=== PATIENT | male | born 1995 | race Caucasian/White ===

== ENCOUNTER 2018-11-09 11:55 | Observation (INO) ==
[2018-11-09] MEDS ORDERED: MoRPHine SULFATE 4 MG/ML 1 ML CARP\\VIAL IV STA (13:04)
[2018-11-09] MEDS ORDERED: ONDANSETRON INJ 2 MG/ML 2 ML VIAL IV STA (13:04)
[2018-11-09 13:26] LABS: Basophils # (auto) 0.02 K/uL (0-0.2); Basophils % (auto) 0.2 %; Eosinophils # (auto) 0.01 K/uL (0-0.5); Eosinophils % (auto) 0.1 %; Hematocrit (blood only) 41.6 % (42-52); Hemoglobin 14.4 g/dL (14.0-18.0); Immature Granulocytes # (auto) 0.02 K/uL (0.00-0.02); Immature Granulocytes % (auto) 0.2 %; Lymphocytes # (auto) 1.32 K/uL (1.2-3.4); Lymphocytes % (auto) 12.7 %; Mean Corpuscular Hgb Conc 34.6 g/dL (32-36); Mean Corpuscular Volume 85.8 fL (80-100); Mean Platelet Volume 9.6 fL (7.4-10.4); Monocytes # (auto) 0.78 K/uL (0.11-0.59); Monocytes % (auto) 7.5 %; Neutrophils # (auto) 8.28 K/uL (1.4-6.5); Neutrophils % (auto) 79.3 %; Platelet Count 243 K/uL (130-400); RDW Coefficient of Variation 12.7 % (11.5-14.5); RDW Standard Deviation 39.9 fL (36.4-46.3); Red Blood Count 4.85 M/uL (4.7-6.1); White Blood Count 10.43 K/uL (4.8-10.8)
[2018-11-09 13:43] LABS: BUN Creatinine Ratio 12.9 (10-20); Calcium 9.3 mg/dl (8.5-10.1); Creatinine Clr Calc Pharmacy 130.8 ml/min; Est GFR (African American) 127.9; Est GFR (Non-African American) 110.4
[2018-11-09] MEDS ORDERED: IOVERSOL 100ml IV PRN (13:54)
--- NOTE | 2018-11-09 14:09 | CT Scan Report ---
CT pelvis w/IV con only HISTORY: 23 years-old Male eval for rectal abscess acute rectal pain with possible perirectal absces s COMPARISON: None available TECHNIQUE: Multiple axial CT images of the pelvis were obtained following the intravenous ministratio n of a 94 mL Optiray 320 IV contrast. A dose lowering technique [facility] FINDINGS: There is a multiloculated peripherally enhancing thick-walled fluid collection about the left periana l tissues extending from the 12-6 o'clock positions measuring 2.8 x 2.1 x 3.1 cm in AP, transverse an d craniocaudal dimensions. This appears to be intersphincteric in location. No definite extension int o the ischiorectal space. Additionally, there is no superior extension above the levator ani musculat ure into the pelvis. No perianal fistula identified. Mild adjacent inflammatory stranding. Mild to moderate formed stool about the distal colon. Fluid-filled terminal ileum. The appendix is no t definitively seen. No ascites or mesenteric inflammation about the pelvis. Urinary bladder is unrem arkable. Iliac vasculature is within normal limits. No adenopathy. Bones appear to be intact. No susp icious bone lesions. IMPRESSION: 1. 3.1 cm left perianal abscess is multiloculated and involves the 12-6:00 region of the perianal tis sues, intersphincteric in location. No extension above the levator ani musculature into the pelvis. N o associated perianal fistula. 2. No acute intrapelvic abnormality identified. The above report was generated using voice recognition software. It may contain grammatical, syntax o r spelling errors. Electronically signed by: Jose Guadalupe Tinajero M.D. 11/09/2018 2:08 PM
[2018-11-09] MEDS ORDERED: MoRPHine SULFATE 2 MG/ML CARP IV STA (14:22)
[2018-11-09] MEDS ORDERED: PIPERACILL/TAZOBAC CONSULT ACTIVE PRN ×2 (15:02→16:22)
--- NOTE | 2018-11-09 15:02 | History & Physical Report ---
Date of Service November 09, 2018 Assessment & Plan (1) Perianal abscess: Seen with Dr. Aviles in the ED. Patient has significant pain and tenderness, will take to the OR for I&D under MAC. He had small glass of water early this morning. Preop Zosyn. Dr Aviles- saw pt in ER, agree with above note for incision/ drainage today in OR History of Present Illness Primary Care Provider: NO PCP 23 y/o male with 1 week history of rectal pain increasing over the past two days and developing into a lump. No fevers or chills, no prior history of abscess or hemorrhoids. Started taking doxycycline today that was called in from home, he is a [employer] student. Allergies Allergy/AdvReac Type Severity Reaction Status Date / Time No Known Allergies Allergy Unverified 11/09/18 12:48 Home Medications Home Medications Medication Instructions Recorded Confirmed Type fluvoxamine 100 mg tablet 100 mg PO BID #180 tab 10/23/18 11/09/18 Rx Past Med/Surg History Medical History Depression Surgical History Status post medial meniscus repair Left knee. Pt thinks it was medial but is unsure. 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 Feels Safe at Home: Yes Smoking Status: Never smoker Second Hand Exposure: No Hx Alcohol Use: Yes Alcohol type: beer and hard liquor Alcohol Intake Frequency : Weekly Alcohol Intake Frequency Comment: once per week Hx Substance Use: No Dental Care, Regularly: Yes Physical Activity Frequency: 3-4 Times per Week Review of Systems Constitutional: no fever and no chills Physical Exam Constitutional: WD/WN, vitals as above well developed and well nourished Respiratory: normal respiratory effort, lungs clear to auscultation Cardiovascular: RRR, no murmur, no edema Gastrointestinal (Abdomen): normal bowel sounds, soft, nontender, no hepatosplenomegaly Rectal Exam: + rectal mass (left perirectal abscess, tender) Results & Data Vital Signs (Past 12 Hours) Vital Signs Temp Pulse Pulse Resp BP BP Pulse Ox 11/09/18 13:57 89 18 140/87 99 11/09/18 11:58 36.3 C L 96 H 20 148/[address] H [address] pelvis w/IV con only HISTORY: 23 years-old Male eval for rectal abscess acute rectal pain with possible perirectal abscess COMPARISON: None available TECHNIQUE: Multiple axial CT images of the pelvis were obtained following the intravenous ministration of a 94 mL Optiray 320 IV contrast. A dose lowering technique was used consistent with the principals of [place]. FINDINGS: There is a multiloculated peripherally enhancing thick-walled fluid collection about the left perianal tissues extending from the 12-6 o'clock positions measuring 2.8 x 2.1 x 3.1 cm in AP, transverse and craniocaudal dimensions. This appears to be intersphincteric in location. No definite extension into the ischiorectal space. Additionally, there is no superior extension above the levator ani musculature into the pelvis. No perianal fistula identified. Mild adjacent inflammatory stranding. Mild to moderate formed stool about the distal colon. Fluid-filled terminal ileum. The appendix is not definitively seen. No ascites or mesenteric inflammation about the pelvis. Urinary bladder is unremarkable. Iliac vasculature is within normal limits. No adenopathy. Bones appear to be intact. No suspicious bone lesions. IMPRESSION: 1. 3.1 cm left perianal abscess is multiloculated and involves the 12-6:00 region of the perianal tissues, intersphincteric in location. No extension above the levator ani musculature into the pelvis. No associated perianal fistula. 2. No acute intrapelvic abnormality identified. The above report was generated using voice recognition software. It may contain grammatical, syntax or spelling errors. Electronically signed by: Jose Guadalupe Tinajero M.D. 11/09/2018 2:08 PM
[2018-11-09] MEDS ORDERED: LACTATED RINGER'S 1,000 ML IV SCH (15:15)
[2018-11-09] MEDS ORDERED: DEXAMETHASONE SOD INJ 4 MG/ML VIAL ONE (15:23)
[2018-11-09] MEDS ORDERED: ONDANSETRON INJ 2 MG/ML 2 ML VIAL ONE (15:23)
[2018-11-09] MEDS ORDERED: LIDOCAINE HCL 2% 2 ML VIAL/AMP(20MG/ML) INFIL ONE (15:23)
[2018-11-09] MEDS ORDERED: PROPOFOL IV EMULSION 10 MG/ML 20 ML VIAL IV ONE (15:23)
[2018-11-09] MEDS ORDERED: fentaNYL citrate 100 MCG/2 ML VIAL ONE ×2 (15:23→16:08)
[2018-11-09] MEDS ORDERED: MIDAZOLAM HCL 1 MG/ML 2ML VIAL ONE (15:23)
[2018-11-09] MEDS ORDERED: PIPERACILLIN/TAZOBACTAM 3.375 GM/115 ML BAG IV ONE (15:30)
[2018-11-09] MEDS ORDERED: ONDANSETRON INJ 2 MG/ML 2 ML VIAL IV PRN ×2 (15:35→16:22)
[2018-11-09] MEDS ORDERED: HYDROmorphone INJ 1 MG/ML SYRINGE IV PRN (15:35)
[2018-11-09] MEDS ORDERED: ePHEDrine sulfate 50 MG/ML AMP IV PRN (15:35)
[2018-11-09] MEDS ORDERED: ATROPINE SULFATE 0.1 MG/ML 10ML SYR IV PRN (15:35)
[2018-11-09] MEDS ORDERED: fentaNYL citrate 100 MCG/2 ML VIAL IV PRN (15:35)
--- NOTE | 2018-11-09 15:38 | Anesthesiology Consultation ---
Date of Service November 09, 2018 Assessment & Plan (1) Encounter for pre-operative examination: Chart Review Chart Review: Acceptable Risk for Surgery and Patient NOT seen in Pre Admission Testing Consults Requested none History Surgery Operation Date: 11/09/18 09:40 Proposed Procedures p Incision and Drainage Perirectal Abscess - Felipe Aviles MD, FACS Height/Weight Height: 6 ft Weight: 77.4 kg Allergies Allergy/AdvReac Type Severity Reaction Status Date / Time No Known Allergies Allergy Unverified 11/09/18 12:48 Medications Home Medications Medication Instructions Recorded Confirmed Last Taken fluvoxamine 100 mg tablet 100 mg PO BID #180 tab 10/23/18 11/09/18 Unknown Active Medications Generic Name Dose Route Start Last Admin Trade Name Freq PRN Reason Stop Dose Admin Ioversol 94 ml 11/09/18 13:54 11/09/18 13:55 Optiray 320 100ml IV 11/13/18 13:53 94 ml ONCE PRN Administration Interaction Checking NPO Date Last Intake of Fluids: 11/09/18 Time Last Intake of Fluids: 10:00 Last Intake of Fluids Comment: SMALL GLASS OF WATER Date Last Intake of Solids: 11/08/18 Time Last Intake of Solids: 20:00 Past Medical History Medical History Depression Exercise / Class Metabolic Activity II 4-5 Yardwork/Stairs/Walk up hill Past Family History Family History Grandfather (Paternal) Prostate cancer Past Surgical History Surgical History Status post medial meniscus repair Left knee. Pt thinks it was medial but is unsure. [place] teeth extracted Past Anesthesia History No Hx of Anesthesia Complications and No Family Hx of Anesthesia Complications History of PONV No Hx of PONV and No Hx of Motion Sickness Social History Smoking Status: Never smoker Hx Alcohol Use: Yes Alcohol type: beer and hard liquor Hx Substance Use: No Physical Exam Vital Signs Last Vital Signs Temp 36.3 C L 11/09/18 11:58 Pulse 78 11/09/18 15:23 Resp 18 11/09/18 15:23 BP 138/85 07/05/19 15:23 Pulse Ox 99 11/09/18 15:23 Testing Laboratory Results 11/09/18 13:20 11/09/18 13:20
[2018-11-09] MEDS ORDERED: BUPIVACAINE 0.5 % 5 MG/1 ML MPF 30ML VIAL ONE (15:54)
--- NOTE | 2018-11-09 16:16 | Operative Report ---
Post Operative Report Pre & Post Diagnosis Operation Date: 11/09/18 09:40 <No data on this case meets the specified criteria> perirectal abscess Procedure Operation Date: 11/09/18 09:40 <No data on this case meets the specified criteria> incision/ drainage/ culture- perirectal abscess Surgeon Felipe Aviles MD, FACS Inspector Barrel nurses Estimated Blood Loss 5 Findings Consistent with Post-Op Diagnosis Specimens culture Description of Procedure see dictation I attest to the content of the Intraoperative Record and any orders documented therein. Any exceptions are noted below.
[2018-11-09] MEDS ORDERED: ACETAMINOPHEN 1,000 MG/100 ML VIAL IV STA (16:21)
[2018-11-09] MEDS ORDERED: ACETAMINOPHEN 325 MG TAB PO PRN (16:22)
[2018-11-09] MEDS ORDERED: IBUPROFEN 600 MG TAB PO PRN (16:22)
[2018-11-09] MEDS ORDERED: MoRPHine SULFATE 2 MG/ML CARP IV PRN (16:22)
[2018-11-09] MEDS ORDERED: PROMETHAZINE HCL 25 MG in SODIUM CHLORIDE 0.9% 50 ML IV PRN (16:22)
[2018-11-09] MEDS ORDERED: HYDROCODONE/ACETAMOPHEN 5/325MG TAB PO PRN ×2 (16:22)
[2018-11-09] MEDS ORDERED: PROMETHAZINE HCL 12.5 MG in SODIUM CHLORIDE 0.9% 50 ML IV PRN (16:22)
[2018-11-09] MEDS ORDERED: SODIUM CHLORIDE 0.9% 1000ML 1,000 ML IV SCH ×2 (16:30→17:45)
--- NOTE | 2018-11-09 17:10 | Anesthesiology Progress Note ---
Date of Service November 09, 2018 Anesthesia Post Procedure Vital Signs Vital Signs: Temp Pulse Pulse Pulse Resp BP BP 11/09/18 17:00 37 C 71 16 129/65 11/09/18 16:50 87 17 151/80 H 11/09/18 16:40 82 18 136/74 11/09/18 16:30 76 16 117/48 L 11/09/18 16:22 36.3 C L 75 20 101/49 L 11/09/18 15:37 36.4 C L 84 18 132/71 11/09/18 15:23 78 18 138/85 11/09/18 13:57 89 18 140/87 11/09/18 11:58 36.3 C L 96 H 20 148/88 H Pulse Ox 11/09/18 17:00 100 11/09/18 16:50 100 11/09/18 16:40 100 11/09/18 16:30 99 11/09/18 16:22 99 11/09/18 15:37 99 11/09/18 15:23 99 11/09/18 13:57 99 11/09/18 11:58 98 Pain Intensity Rectal: Pain Intensity: 7 Transfer of Care Handoff Completed per policy Notes Mental Status: alert / awake / arousable and participated in evaluation Patient Amnestic to Procedure: Yes Nausea / Vomiting: adequately controlled Pain: adequately controlled Airway Patency, RR, SpO2: stable & adequate BP & HR: stable & adequate Hydration State: stable & adequate Anesthetic Complications: no major complications apparent and Pt Satisfied with anesthetic care
--- NOTE | 2018-11-09 20:46 | Emergency Department Note ---
Entered by Marli Rodarte acting as a scribe for Garrett Paulino MD History of Present Illness General Chief complaint: Rectal Pain Stated complaint: RECTAL PAIN Source: patient Mode of arrival: ambulatory Limitations: no limitations History of Present Illness Onset (ago): week(s) 1 Location: pelvis (rectum) Radiation: non-radiation Pain Consistency: + constant Maximum Pain Intensity: 8 Current Pain Intensity: 8 Relieved By: + none Exacerbated By: + other (having a bowel movement) Associated symptoms: + other (-abdominal pain, -urinary symptoms, -rectal bleeding) Treatments prior to arrival: none The patient is a 23 year old male who presents to the ED with complaints of rectal pain for the past 1 week. He rates his pain as an 8/10 in severity. He states the area hurts "all the time" and especially with bowel movements. He believes there is a lump in the area. He denies any recent fevers or vomiting. He denies any abdominal pain or urinary symptoms. He states his bowel movements have been hard recently, which is normal for him. He denies any personal or family history of Crohns or IBD. He also denies any recent rectal bleeding. Home Medications Home Medications Medication Instructions Recorded Confirmed Type fluvoxamine 100 mg tablet 100 mg PO BID #180 tab 10/23/18 11/09/18 Rx Allergies Allergy/AdvReac Type Severity Reaction Status Date / Time No Known Allergies Allergy Unverified 11/09/18 12:48 Past Med/Surg History Medical History Depression Surgical History Status post medial meniscus repair Left knee. Pt thinks it was medial but is unsure. 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 Other Information That Helps Us Care for You: No Feels Safe at Home: Yes Safety Concerns: Feels Safe At This Time Smoking Status: Light tobacco smoker Tobacco Type: cigarettes Cigarettes Per Day: 5 in lifetime so far Do You Dip or Chew Tobacco: No Second Hand Exposure: No Tobacco Cessation Education Requested by Patient: No Hx Alcohol Use: Yes Alcohol type: beer and hard liquor Alcohol Intake Frequency: Weekly Alcohol Intake Frequency Comment: once per week Hx Substance Use: No Dental Care, Regularly: Yes Physical Activity Frequency: 3-4 Times per Week Review of Systems See HPI for pertinent positives & negatives. and A total of 10 systems reviewed and were otherwise negative Physical Exam Vital Signs Vital Signs - 24 hr 11/09/18 11:58 11/09/18 13:57 11/09/18 15:23 Temperature 36.3 C L Temperature Source Oral Sepsis Action Taken by Nursing No Action Required Pulse Rate 96 H 78 Pulse Rate [Finger] 89 Pulse Rhythm [Finger] Pulse Strength [Finger] Respiratory Rate 20 18 18 Respiratory Effort / Characteristics Non-Labored Spontaneous Respiratory Depth Normal Respiratory Pattern Regular Blood Pressure 148/88 H 138/85 Blood Pressure [Left Arm] 140/87 Blood Pressure Mean 108 Blood Pressure Mean [Left Arm] 104 Blood Pressure Position Sitting Blood Pressure Position [Left Arm] Pulse Oximetry 98 99 99 Oxygen Delivery Method Room Air Room Air Room Air 11/09/18 15:37 Temperature 36.4 C L Temperature Source Oral Sepsis Action Taken by Nursing Pulse Rate Pulse Rate [Finger] 84 Pulse Rhythm [Finger] Regular Pulse Strength [Finger] Normal Respiratory Rate 18 Respiratory Effort / Characteristics Respiratory Depth Respiratory Pattern Blood Pressure Blood Pressure [Left Arm] 132/71 Blood Pressure Mean Blood Pressure Mean [Left Arm] 91 Blood Pressure Position Blood Pressure Position [Left Arm] Lying Pulse Oximetry 99 Oxygen Delivery Method Constitutional: Vital signs reviewed. Eyes: Pupils are equal round reactive to light. Conjunctiva are noninjected. ENT: Pharynx is clear without erythema or exudate. Mucous membranes are moist. Neck supple without meningeal signs. Respiratory: Clear to auscultation bilaterally. Breath sounds are equal bilaterally. Cardiovascular: Regular rate and rhythm. No rubs or gallops. GI: Soft, nondistended and nontender. Bowel sounds are present. Musculoskeletal: No peripheral edema. No lower extremity tenderness. Rectal: On the left buttock, there is a 3 cm extremely tender erythematous, fluctuant lesion, no fissures or hemorrhoids noted. Integumentary: No cyanosis. Neurological: The patient is awake and alert. No focal deficits. Psychiatric: Normal affect. Course 1300: The patient was evaluated in room C8 and a complete history and physical were performed. 1441: I discussed the patients case with Zeferino Arce PA-C, General Surgery. He will consult with Dr. Aviles. 1435: discussed his test results and also spoke to his Father who is an ED physician. 1441: I discussed the patients case with Zeferino Arce PA-C, General Surgery. He will consult with Dr. Aviles. 1504: I spoke with Dr. Aviles, General Surgery. He will take the patient to the OR. Consultations Consultation #1: I discussed the patients case with Zeferino Arce PA-C, General Surgery. He will consult with Dr. Aviles. Time: 14:41 Consultation #2: I spoke with Dr. Aviles, General Surgery. He will take the patient to the OR. Time: 15:04 Administered Medications Ioversol (Optiray 320 100ml) 94 ml IV ONCE PRN PRN Reason: Interaction Checking Stop: 11/13/18 13:53 Last Admin: 11/09/18 13:55 Dose: 94 ml Documented by: [id number] Discontinued Medications Bupivacaine HCl (Marcaine 0.5% Mpf) Confirm Administered Dose 30 ml .ROUTE .STK-MED ONE Stop: 11/09/18 15:55 Last Admin: 11/09/18 16:27 Dose: 3 ml Documented by: [id number] Piperacillin Sod/Tazobactam Sod (Zosyn) 3.375 gm in 115 mls @ 230 mls/hr IV TODAY@1530 ONE Stop: 11/09/18 15:59 Last Infusion: 11/09/18 16:16 Dose: 0 mls/hr Documented by: [id number] Admin: 11/09/18 15:46 Dose: 230 mls/hr Documented by: [id number] Lactated Ringer's (Lr) 1,000 mls @ 125 mls/hr IV .Q8H CECIL Stop: 12/09/18 15:14 Last Admin: 11/09/18 15:30 Dose: 125 mls/hr Documented by: [id number] Acetaminophen (Ofirmev) 1,000 mg in 100 mls @ 400 mls/hr IV NOW STA Stop: 11/09/18 16:35 Last Admin: 11/09/18 19:31 Dose: Not Given Documented by: [id number] Sodium Chloride (Nss 1000ml) 1,000 mls @ 50 mls/hr IV .Q20H CECIL Stop: 12/09/18 16:29 Last Admin: 11/09/18 20:08 Dose: Not Given Documented by: [id number] Morphine Sulfate (Morphine Sulfate) 4 mg IV NOW STA Stop: 11/09/18 13:05 Last Admin: 11/09/18 13:23 Dose: 4 mg Documented by: [id number] Morphine Sulfate (Morphine Sulfate) 2 mg IV NOW STA Stop: 11/09/18 14:23 Last Admin: 11/09/18 14:28 Dose: 2 mg Documented by: [id number] Ondansetron HCl (Zofran) 4 mg IV NOW STA Stop: 11/09/18 13:05 Last Admin: 11/09/18 13:24 Dose: 4 mg Documented by: [id number] Medical Decision Making Differential Diagnosis Differential Diagnoses considered include hemorrhoid, thrombosed hemorrhoid, perianal abscess, perirectal abscess, fistula. Medical Records Attestation: I reviewed the patient's medical records. I did perform a limited focused review of portions of the patient's old chart on the electronic medical record. The patient was seen on October 23, 2018 for anxiety and depression at his primary care office and started on Fluvoxamine. Home Medications Current Medication List: was personally reviewed by me Laboratory Data Attestation: I reviewed the patient's lab results. Result diagrams: 11/09/18 13:20 11/09/18 13:20 Lab Results 11/09/18 11/09/18 Range/Units 13:20 13:20 WBC 10.43 (4.8-10.8) K/uL RBC 4.85 (4.7-6.1) M/uL Hgb 14.4 (14.0-18.0) g/dL Hct 41.6 L (42-52) % MCV 85.8 (80-100) fL MCH 29.7 (25-34) pg MCHC 34.6 (32-36) g/dL RDW Std Deviation 39.9 (36.4-46.3) fL RDW Coeff of Walter 12.7 (11.5-14.5) % Plt Count 243 (130-400) K/uL MPV 9.6 (7.4-10.4) fL Immature Gran % (Auto) 0.2 % Neut % (Auto) 79.3 % Lymph % (Auto) 12.7 % [place] % (Auto) 7.5 % Eos % (Auto) 0.1 % Baso % (Auto) 0.2 % Immature Gran # (Auto) 0.02 (0.00-0.02) K/uL Neut # (Auto) 8.28 H (1.4-6.5) K/uL Lymph # (Auto) 1.32 (1.2-3.4) K/uL [place] # (Auto) 0.78 H (0.11-0.59) K/uL Eos # (Auto) 0.01 (0-0.5) K/uL Baso # (Auto) 0.02 (0-0.2) K/uL Sodium 141 (136-145) mmol/L Potassium 4.0 (3.5-5.1) mmol/L Chloride 105 (98-107) mmol/L Carbon Dioxide 29 (21-32) mmol/L Anion Gap 7.0 (3-11) BUN 13 (7-18) mg/dl Creatinine 0.97 (0.6-1.4) mg/dl Est Cr Clr Drug Dosing 130.8 ml/min Est GFR ( Amer) 127.9 Est GFR (Non-Af Amer) 110.4 BUN/Creatinine Ratio 12.9 (10-20) Glucose 97 (70-99) mg/dl Calcium 9.3 (8.5-10.1) mg/dl Imaging Data Radiologist's Impression: Radiology results as stated below per my review and the radiologist's interpretation: CT pelvis w/IV con only HISTORY: 23 years-old Male eval for rectal abscess acute rectal pain with possible perirectal abscess COMPARISON: None available TECHNIQUE: Multiple axial CT images of the pelvis were obtained following the intravenous ministration of a 94 mL Optiray 320 IV contrast. A dose lowering technique was used consistent with the principals of [place]. FINDINGS: There is a multiloculated peripherally enhancing thick-walled fluid collection about the left perianal tissues extending from the 12-6 o'clock positions measuring 2.8 x 2.1 x 3.1 cm in AP, transverse and craniocaudal dimensions. This appears to be intersphincteric in location. No definite extension into the ischiorectal space. Additionally, there is no superior extension above the levator ani musculature into the pelvis. No perianal fistula identified. Mild adjacent inflammatory stranding. Mild to moderate formed stool about the distal colon. Fluid-filled terminal ileum. The appendix is not definitively seen. No ascites or mesenteric inflammation about the pelvis. Urinary bladder is unremarkable. Iliac vasculature is within normal limits. No adenopathy. Bones appear to be intact. No suspicious bone lesions. IMPRESSION: 1. 3.1 cm left perianal abscess is multiloculated and involves the 12-6:00 region of the perianal tissues, intersphincteric in location. No extension above the levator ani musculature into the pelvis. No associated perianal fistula. 2. No acute intrapelvic abnormality identified. The above report was generated using voice recognition software. It may contain grammatical, syntax or spelling errors. Electronically signed by: Jose Guadalupe Tinajero M.D. 11/09/2018 2:08 PM Blood Pressure Blood Pressure Findings: Elevated blood pressure Blood Pressure Disposition: Referred to patients primary care provider [facility] Narrative I did evaluate the patient as noted above. The patient is presenting with pain to his left buttock. He has what appears to be perianal abscess. He is exquisitely tender. I did recommend work-up to rule out perirectal abscess or fistula. IV access was established. I did treat him with IV morphine and Zofran. The patient was placed on a continuous chucking machine set up operator tool. I did order and review the patient's blood work as noted in the electronic medical record. His white count is 10.4. Electrolytes are unremarkable. Creatinine is normal. I did order a CT of the pelvis with IV contrast. I did review the images myself as well as the radiology report as described above. There is no evidence of perirectal abscess. He does have a perianal abscess located in the intersphincteric space. I did discuss the test results with the patient. I also spoke to his father over the telephone per his request. His father is a physician as well. I did recommend surgical consult. He was given additional morphine for pain. I did speak to Dr. Aviles of surgery who evaluated patient in the ED and took him to the operating room for treatment. Impression & Plan Perianal abscess Discharge Plan Visit Data *Final* Discharge Date/Time: 11/09/18 15:23 Chief Complaint: Rectal Pain Stated Complaint: RECTAL PAIN ED Provider: Garrett Pauilno Discharge Problem: Perianal abscess Patient Disposition: Still a Patient Discharge Instructions Interventions: ED Discharge Assessment Last Done: 11/09/18 15:23 The scribe's documentation has been prepared under my direction and personally reviewed by me in its entirety. I confirm that the note above accurately reflects all work, treatment, procedures, and medical decision making performed by me.
[2018-11-09] MEDS: PIPERACILLIN/TAZOBACTAM 3.375 GM in DEXTROSE 5% 100 ML IV SCH (21:29)
--- NOTE | 2018-11-10 01:13 | Operative Report ---
DATE OF OPERATION: 11/09/2018 NAME OF OPERATION: Incision, drainage and culture of perirectal abscess. PREOPERATIVE DIAGNOSIS: Perirectal abscess. POSTOPERATIVE DIAGNOSIS: Perirectal abscess. STAFF SURGEON: Dr. Aviles. ANESTHESIA: LMA general. DESCRIPTION OF PROCEDURE: The patient was brought in the Operating Room and placed in the operating table in supine position. After appropriate anesthesia, he was placed in the lithotomy position. His perianal area was prepped and draped in usual fashion. He had an indurated fluctuant area in the left of the anal area. This was anesthetized using 0.5% plain Marcaine and then opened approximately 2 cm. The cavity was approximately 4 cm deep with purulent fluid, which was cultured. It was irrigated and then half inch Nu Gauze packing was placed. Dressing applied. The patient is transferred to Recovery Room in stable condition. I attest to the content of the Intraoperative Record and any orders documented therein. Any exception s are noted below.
[2018-11-10] MEDS: PIPERACILLIN/TAZOBACTAM 3.375 GM in DEXTROSE 5% 100 ML IV SCH (06:13)
[2018-11-10 07:02] LABS: Creatinine Clr Calc Pharmacy 134.9 ml/min; Est GFR (African American) 132.9; Est GFR (Non-African American) 114.6
--- NOTE | 2018-11-10 08:52 | Discharge Summary ---
PRINCIPAL DIAGNOSIS: Perirectal abscess. PROCEDURES: The patient underwent incision, drainage and culture of a left perirectal abscess. HISTORY OF PRESENT ILLNESS: The patient is a 23-year-old male with 1 week history of perianal pain, presenting to the Emergency Room on 11/09/[address] scan and physical exam consistent with perirectal abscess. He was taken to the operating room on 11/09/2018 where he underwent incision, drainage and culture of the perirectal abscess, which he tolerated well. He has done well overnight and is felt stable for discharge home today to be followed in the surgical clinic within several days.
[2018-11-10] MEDS ORDERED: DOCUSATE SODIUM/SENNA 50/8.6MG TAB PO SCH (09:00)
--- NOTE | 2018-11-10 10:08 | Anesthesiology Progress Note ---
Date of Service November 10, 2018 Anesthesia Post Procedure Vital Signs Vital Signs: Temp Pulse Pulse Pulse Pulse Resp BP 11/10/18 08:04 36.6 C 71 55 L 16 11/10/18 07:23 36.6 C 55 L 16 11/10/18 03:29 36.6 C 83 16 11/09/18 23:15 36.9 C 80 16 11/09/18 20:22 36.7 C 90 18 11/09/18 19:09 36.8 C 89 16 11/09/18 18:13 36.8 C 101 H 17 11/09/18 17:43 36.6 C 96 H 18 11/09/18 17:15 37.1 C 92 H 16 11/09/18 17:00 37 C 71 16 11/09/18 16:50 87 17 11/09/18 16:40 82 18 11/09/18 16:30 76 16 11/09/18 16:22 36.3 C L 75 20 11/09/18 15:37 36.4 C L 84 18 11/09/18 15:23 78 18 138/85 11/09/18 13:57 89 18 11/09/18 11:58 36.3 C L 96 H 20 148/88 H BP BP Pulse Ox 11/10/18 08:04 129/65 106/62 99 11/10/18 07:23 106/62 99 11/10/18 03:29 101/58 L 100 11/09/18 23:15 129/67 99 11/09/18 20:22 135/70 97 11/09/18 19:09 143/73 H 97 11/09/18 18:13 138/80 97 11/09/18 17:43 152/77 H 100 11/09/18 17:15 137/68 100 11/09/18 17:00 129/65 100 11/09/18 16:50 151/80 H 100 11/09/18 16:40 136/74 100 11/09/18 16:30 117/48 L 99 11/09/18 16:22 101/49 L 99 11/09/18 15:37 132/71 99 11/09/18 15:23 99 11/09/18 13:57 140/87 99 11/09/18 11:58 98 Pain Intensity Rectal: Pain Intensity: 3 Transfer of Care Handoff Completed per policy Notes Mental Status: alert / awake / arousable and participated in evaluation Patient Amnestic to Procedure: Yes Nausea / Vomiting: adequately controlled Pain: adequately controlled Airway Patency, RR, SpO2: stable & adequate BP & HR: stable & adequate Hydration State: stable & adequate Anesthetic Complications: no major complications apparent and Pt Satisfied with anesthetic care
== END 2018-11-10 11:38 | disposition home or self-care (01) ==
LOC: ED 11:55 → MERGE 11:55 → 3W 15:10 → OR 15:10